=== PATIENT | male | born 1955 | race Caucasian/White ===

== ENCOUNTER 2019-01-28 10:57 | Observation (INO) | payer BC, SELFPAY ==
[2019-01-28] VITALS (7 sets, daily range): BP systolic 105–145; BP diastolic 62–84; PULSE 72–91; RESP 14–18; TEMP 36.7–36.8; O2SAT 91–99; BMI 26.7; BMI 26.8; BMI 26.6
--- NOTE | 2019-01-28 11:20 | RAD_ITS ---
STUDY: X-RAY CHEST REASON FOR EXAM: Male, 64 years old. Body pain. Weakness. TECHNIQUE: Single AP portable view of the chest. COMPARISON: None. FINDINGS: Mild cardiomegaly. Pulmonary vascularity unremarkable. Aorta ectatic. Bibasilar atelectasis/scarring. No focal patchy airspace opacities. No pleural effusions. Suspected COPD/emphysema. Upper abdomen unremarkable. Osseous structures intact. No pneumothorax. 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
--- NOTE | 2019-01-28 11:21 | EKG12_ITS ---
Test Reason : DYSRHYTHMIA Blood Pressure : / mmHG Vent. Rate : 087 BPM Atrial Rate : 087 BPM P-R Int : 168 ms QRS Dur : 110 ms QT Int : 406 ms P-R-T Axes : 015 -70 030 degrees QTc Int : 488 ms Sinus rhythm with occasional Premature ventricular complexes and Premature atrial complexes Incomplete right bundle branch block Left anterior fascicular block Inferior infarct , age undetermined Abnormal ECG Confirmed by ALEKSANDR PRINGLE, RANDA ([id number]), newspaper editor CASSANDRA GREEN ([id number]) on 02/02/2019 10:46:52 AM Referred By: AXEL Confirmed By:RANDA BRANDON MD
[2019-01-28 11:35] LABS: Absolute Lymphocyte Count 1.38 X10^3/ul (0.83-4.51); Absolute Neutrophil Count 5.9 X10^3/uL (2.0-7.7); Basophil# 0.02 X10^3/uL; Basophil% 0.2 % (0-1); Eosinophil# 0.17 X10^3/uL; Hematocrit 44.1 % (40-54); Lymphocyte # 1.38 X10^3/ul (4.0); Lymphocyte % 16.4 % (19-41); Mean Corpuscular Hgb 30.5 pg (27.0-32.0); Mean Corpuscular Volume 89.6 fL (80-94); Monocyte# 0.94 X10^3/uL; Monocyte% 11.2 % (0-10); Neutrophil # 5.88 X10^3/uL (2.7-7.7); Platelet Count 383 K/mm3 (150-450); RBC Distribution Width SD 45.8 fl (35.1-43.9); Red Blood Count 4.92 M/mm3 (4.6-6.2); White Blood Count 8.4 K/mm3 (4.4-11.0)
[2019-01-28 11:37] LABS: POSITIVE COUNT NO; POSITIVE DIFFERENTIAL NO; POSITIVE MORPHOLOGY NO
[2019-01-28] MEDS: 0.9% Normal Saline 1,000 ML 1000 ML IV (11:44)
[2019-01-28] MEDS: MethylPREDNISolone 125 MG/2 ML Vial IV (11:44)
[2019-01-28] MEDS: fentaNYL 100 MCG/2 ML Ampul IV (11:44)
[2019-01-28 11:57] LABS: Anion Gap 8 (5-15); BUN 14 mg/dL (7-18); BUN/Creat Ratio 13.7 RATIO (10-20); Calcium,Total 9.6 mg/dL (8.5-10.1); Chloride 93 mmol/L (98-107); Creatinine, Serum 1.02 mg/dL (0.70-1.30); EST Glomerular Filtration Rate 79 mL/min (>60); Est Glom Filt Rate - Afr Amer 95 mL/min (>60); Estimated Creatinine Clearance 72.65 ml/min; Glucose 97 mg/dL (74-106); Potassium 2.7 mmol/L (3.5-5.1); Sodium Level 133 mmol/L (136-145)
--- NOTE | 2019-01-28 11:58 | ED.RN ---
LAB CALL WITH CRITICAL VALUE POTASSIUM 2.7. KODAK GLASER AND DR. HOLGUIN VERBALLY NOTIFIED BY THIS RN.
[2019-01-28 12:30] LABS: Bacteria 0 SEEN /hpf (None Seen); Mucous, Urine 0 SEEN /hpf (<or=2+)
[2019-01-28 12:37] LABS: Color, Urine Yellow (Yellow); Glucose, Dipstick Normal (Normal); Ketone-Dipstick 5 mg/dl (Negative); Leukocyte Esterase-Dipstick 25 /ul (Negative); Nitrite-Dipstick Negative (Negative); Occult Blood-Urine 150 /ul (Negative); Protein-Dipstick 30 mg/dl (Negative); Urine Clarity Sl. Cloudy (Clear); Urine Urobilinogen 1 mg/dl (Normal)
[2019-01-28 12:56] LABS: Urine Bilirubin Dipstick 1 mg/dL (Negative)
[2019-01-28 12:58] LABS: Red Blood Cells-Urine 0-5 SEEN /hpf (0-5); Squamous Epithelial Cells - UA 0-5 SEEN /hpf (0-5); White Blood Cells 0-5 SEEN /hpf (0-5)
[2019-01-28] MEDS: fentaNYL 100 MCG/2 ML Ampul 50 MCG IV (14:03)
--- NOTE | 2019-01-28 14:20 | PCM.HP.STD ---
Problem List (1) Acute back pain Status: Acute Qualifiers: Back pain location: back pain in unspecified location Back pain laterality: unspecified Qualified Code(s): M54.9 - Dorsalgia, unspecified (2) Chronic back pain Status: Chronic Qualifiers: Back pain location: back pain in other location Qualified Code(s): M54.9 - Dorsalgia, unspecified; G89.29 - Other chronic pain (3) HTN (hypertension) Status: Chronic Qualifiers: Hypertension type: essential hypertension Qualified Code(s): I10 - Essential (primary) hypertension (4) HLD (hyperlipidemia) Status: Chronic Qualifiers: Hyperlipidemia type: pure hypercholesterolemia Qualified Code(s): E78.00 - Pure hypercholesterolemia, unspecified; E78.0 - Pure hypercholesterolemia (5) GERD (gastroesophageal reflux disease) Status: Chronic Qualifiers: Esophagitis presence: esophagitis presence not specified Qualified Code(s): K21.9 - Gastro-esophageal reflux disease without esophagitis (6) Tobacco use Status: Chronic (7) Allergic rhinitis Status: Chronic Qualifiers: Allergic rhinitis trigger: unspecified Allergic rhinitis seasonality: unspecified Qualified Code(s): J30.9 - Allergic rhinitis, unspecified (8) Hypokalemia Status: Acute (9) Hyponatremia Status: Acute History of Present Illness Date of Admission: 01/28/19 Chief Complaint: Weakness, worsening, recent d/c prednisone. The patient is a 64 y/o M w/ PMHx: Tobacco use, HTN, HLD, GERD, Allergic Rhinitis, BPH, Chronic Pain Syndrome w/ Chronic Back Pain on chronic methadone/oxycodone following w/ Pain Management who presents to the [facility] ED on 01/28/19 with history of recently running out of his 10 mg p.o. twice daily prednisone regimen which is been on for the last 10 years proximally 1 week prior with no refill obtained and since then over the last 3 days progressively worsening diffuse pain to the back, weakness which is generalized with poor oral intake and decreased urine output as a result secondary to debility prompting evaluation per his primary care office [facility] who recommended evaluation in the emergency room. Patient is in [place] however he notes that he does not like the [facility] prompting him to be evaluated at the [facility] ED. Work-up in the ED included T 98.2, heart rate 91, BP 131/83, respiratory rate 16, 95% on room air, CBC with W BC 8.4, hemoglobin 15, platelet 383 without left shift, BMP with sodium 133, potassium 2.7, chloride 93, troponin less than 0.015, urinalysis with elevated specific gravity 1.020 otherwise no market evidence of UTI only suggestive of dehydration, chest x-ray with chronic COPD, emphysematous changes with bibasilar atelectasis and scarring with mild cardiomegaly with no acute cardiopulmonary findings. In the ED patient ministered normal saline, Solu-Medrol 125 mg IV x1, fentanyl for total of 150 mcg IV. Past Medical History Past Medical History (Chronic Problems): Chronic Problems Chronic back pain (Chronic) HTN (hypertension) (Chronic) HLD (hyperlipidemia) (Chronic) GERD (gastroesophageal reflux disease) (Chronic) Tobacco use (Chronic) Allergic rhinitis (Chronic) Allergies aspirin Allergy (Verified 01/28/19 11:01) Unknown Penicillins Allergy (Verified 01/28/19 11:01) Unknown Home Medications: Ambulatory Orders Medication Instructions Recorded Amlodipine Besylate 10 mg PO DAILY 01/28/19 Atorvastatin Calcium [Lipitor] 20 mg PO DAILY 01/28/19 Hydrochlorothiazide [Hctz] 25 mg PO DAILY 01/28/19 Methadone HCl 5 mg PO BID 01/28/19 Oxycodone HCl 10 mg PO 4X/DAY 01/28/19 Prednisone 10 mg PO BID 01/28/19 Tamsulosin HCl 0.4 mg PO DAILY 01/28/19 Tizanidine HCl 2 mg PO TID PRN PRN 01/28/19 Surgical History: - - Laminectomy decompression of the cervical spine with fusion, umbilical hernia repair, pyloromyotomy, turbinoplasty x 2. Psychiatric History: No pertinent psych hx Lives: Spouse/ Significant Other Smoking Status: Current every day smoker - Currently 1 pack/day cigarette tobacco use. Tobacco Use: Cigarettes Alcohol: Occasional - Patient notes occasionally 1-2 beers at night but not every day. Drugs: None - *Family History Maternal History Items: - - Patient notes a maternal family history of heart disease and hypertension. Paternal History Items: - - Patient notes a paternal family history of heart disease as well as prostate cancer. Review of Systems Constitutional: Reports: Anorexia, Malaise, Weakness, Fatigue. Denies: Chills, Fever, Weight Change HEENT: Denies: Head Aches, Sinus Congestion, Sinus Drainage Cardiovascular: Denies: Chest Pain, Palpitations Respiratory: Denies: Cough, Shortness of breath at rest, Sputum production Gastrointestinal: Denies: Abdominal Pain, Nausea, Vomiting Genitourinary: Reports: - - Decreased UOP corresponding w/ decreased intake.. Denies: Dysuria Musculoskeletal: Reports: Back Pain, Joint Pain, Joint stiffness, Joint Tenderness, Muscle pain, Neck Pain, Shoulder Pain Skin: Denies: Rash, Wounds Neurological: Reports: - - Generalized weakness.. Denies: Focal weakness, Numbness, Tingling Psychiatric: Denies: Anxiety, Depression, Homicidal Ideations, Suicidal Ideations Hematologic/ Lymphatic: Denies: Easy Bruising, Easy Bleeding VTE Information - Inpt Only VTE Present on Admission: No VTE Mechan Device Prophylaxis: SCD's VTE Pharm Prophylaxis ordered?: Yes Patient Problems: Active and Suspected Problems Acute back pain (Acute) Hypokalemia (Acute) Hyponatremia (Acute) Subjective: Patient laying in the ED bed, fatigued appearance, notes ongoing discomfort although primarily worsened with any movement attempts. Objective: Physical Examination: General: awake, alert, oriented x 3 and cooperative, seated upright in the ED bed in no apparent distress, uncomfortable however with any movement attempts. Skin: normal color, turgor, no icterus, cyanosis. HEENT: AT/NC, EOMI, PERRLA, dry MM, no carotid bruits or JVD noted. Lungs: CTA bilaterally, moderate effort, moderate decrease BL bases, no rales, ronchi or wheezing. Heart: Regular rate and rhythm; no gallop, rub audible. Abdomen: soft, overweight, NTTP, ND, normal BS, no HSM. Extremities: no cyanosis, clubbing, or edema, appropriate intact peripheral pulses, lumbar and hip discomfort with straight leg raise bilaterally, discomfort with palpation of the complete spine as well as paraspinous regions. Neurological: patient awake, alert, oriented x 3; cognitive function intact; pupils equally reactive to light and accomodation; cranial nerves II-XII grossly normal, moving all 4 extremities however extremely debilitated secondary to acute on chronic back pain with strength severely globally decreased, no focal deficits. Psychiatric: affect appears fatigued, no acute evidence of depressive or anxiety feelings. - Physical Exam Vital Signs Temp Pulse Resp BP Pulse Ox 98.2 F 79 14 145/84 H 93 01/28/19 10:57 01/28/19 14:07 01/28/19 14:07 01/28/19 14:07 01/28/19 14:07 Oxygen Delivery Method Room Air Weight: 176 lb Body Mass Index (BMI) 26.7 Laboratory Tests Past 24 Hrs 01/28/19 01/28/19 01/28/19 11:23 11:23 12:18 WBC 8.4 RBC 4.92 Hgb 15.0 Hct 44.1 MCV 89.6 MCH 30.5 MCHC 34.0 RDW 14.0 RDW Differential 45.8 H Plt Count 383 MPV 9.0 Immature Gran % (Auto) 0.200 Neut % (Auto) 70.0 Lymph % (Auto) 16.4 L [place] % (Auto) 11.2 H Eos % (Auto) 2.0 Baso % (Auto) 0.2 Absolute Neuts (auto) 5.9 Absolute Lymphs (auto) 1.38 Total Counted Not Reportable Sodium 133 L Potassium 2.7 L* Chloride 93 L Carbon Dioxide 32.0 Anion Gap 8 BUN 14 Creatinine 1.02 Estim Creat Clear Calc 72.65 Est GFR (MDRD) Af Amer 95 Est GFR (MDRD) Non-Af 79 BUN/Creatinine Ratio 13.7 Glucose 97 Calcium 9.6 Troponin I < 0.015 Urine Color Yellow Urine Clarity Sl. Cloudy Urine pH 5.0 Ur Specific [place] 1.020 Urine Protein 30 H Urine Glucose (UA) Normal Urine Ketones 5 H Urine Occult Blood 150 H Urine Nitrite Negative Urine Bilirubin 1 H Urine Urobilinogen 1 H Ur Leukocyte Esterase 25 H Urine RBC 0-5 SEEN Urine WBC 0-5 SEEN Ur Squamous Epith Cells 0-5 SEEN Urine Bacteria 0 SEEN Urine Mucus 0 SEEN Assessment/Plan All Active Problems Acute back pain (Acute) Hypokalemia (Acute) Hyponatremia (Acute) The patient is a 64 y/o M w/ PMHx: Tobacco use, HTN, HLD, GERD, Allergic Rhinitis, BPH, Chronic Pain Syndrome w/ Chronic Back Pain on chronic methadone/oxycodone following w/ Pain Management who presents to the [facility] ED on 01/28/19 with history of recently running out of his 10 mg p.o. twice daily prednisone regimen which is been on for the last 10 years proximally 1 week prior with no refill obtained and since then over the last 3 days progressively worsening diffuse pain to the back, weakness which is generalized with poor oral intake and decreased urine output as a result secondary to debility prompting evaluation per his primary care office [facility] who recommended evaluation in the emergency room. (1) Acute on Chronic Intractable Back Pain: Plain films requested, no performed in the ED although suspect associated w/ recent discontinuation prednisone regimen which had been long-term without taper. Will admit to [facility], maintain on fall precautions, frequent positioning, po/IV pain regimen, continue scheduled steroid regimen, tizanidine PRN, scheduled toradol 30 mg IV q 8 x 5 doses, anti-emetics, bowel regimen. Will consult PT and OT for evaluation. If not improving may need to consider more aggressive imaging. Will continue patient home methadone regimen. (2) Hypokalemia: Admission K+ 2.7, supplementation given, repeat level this evening and in AM. Magnesium pending. (3) Hyponatremia, Hypochloremia, Hypovolemic: Admission Na 133, secondary to recent decreased intake, Chl 93, continue to hydrate, hold diuretic, repeat BMP in AM. (4) Hypertension: Holding diuretic, will continue home norvasc, PRN hydralazine. (5) Hyperlipidemia: Continue home statin regimen. (6) GERD: Famotidine. (7) DVT Prophylaxis: SCDs, lovenox. Code Visit OBSV E&M: 41202 Initial observation care L3
--- NOTE | 2019-01-28 14:29 | ED.VISSUMM ---
- ER Visit Summary Date of Service: 01/28/19 Chief Complaint: Weakness History of Present Illness: The patient is a 64 M with generalized weakness for 3 days. Patient reports back pain involving his entire spine. Symptoms started about 3-4 days after he stopped taking prednisone. Patient had been on prednisone for about 10 years. He was most recently on 10 mg daily. He ran out of prednisone, and because he was planning to stop it, he did not refill his prescription. He did not have a taper. He denies any bowel or bladder changes, except he has had decreased urine output. He has also had decreased p.o. intake. He reports some shortness of breath and generalized weakness. History of COPD, hypertension, hyperlipidemia, BPH, CKD, anemia, et al. History of a cervical laminectomy remotely but no other spinal procedures. Physical Examination: Afebrile and vital signs unremarkable. Patient appears uncomfortable but not toxic or in distress. Alert and oriented. Heart regular rate and rhythm. Lungs clear. Abdomen soft. Diffuse mild tenderness to his entire spine. Good strength and sensation, however on ambulation, he is only able to transfer. Test Results: EKG showed sinus rhythm at a rate of 87 with PVCs and PAC. Incomplete right bundle branch block noted with left anterior fascicular block noted. No acute ischemia or infarction pattern. CBC unremarkable. Sodium 133, potassium 2.7 and chloride 93. Urinalysis unremarkable. Troponin normal. Chest x-ray showed chronic changes and borderline cardiomegaly. Nothing acute. Emergency Department Course and Treatment: Patient was treated with fluids, fentanyl, and Solu-Medrol. After treatment, he was having continued pain. He received additional fentanyl. Patient's workup was fairly reassuring. He did have oral potassium replacement. There was no indication to image his spine. No trauma. No focal tenderness. Suspect the patient's symptoms are related to stopping prednisone. Again, he was treated with Solu-Medrol. He continued to have a lot of pain and was unable to ambulate. The hospitalist was contacted for further care. Treatment Plan: As above Disposition: Admission Impression: 1. Generalized weakness 2. Hypokalemia This note was generated with [employer] dictation software. It may contain incorrect words, spelling, and punctuation that were not noted in review of the chart prior to signing ED Disposition - Plan for ED Patient: Referrals: [facility] Doctor,Out of [Primary Care Provider] -
--- NOTE | 2019-01-28 14:31 | HP.PCM_ITS ---
Problem List (1) Acute back pain Status: Acute Qualifiers: Back pain location: back pain in unspecified location Back pain laterality: unspecified Qualified Code(s): M54.9 - Dorsalgia, unspecified (2) Chronic back pain Status: Chronic Qualifiers: Back pain location: back pain in other location Qualified Code(s): M54.9 - Dorsalgia, unspecified; G89.29 - Other chronic pain (3) HTN (hypertension) Status: Chronic Qualifiers: Hypertension type: essential hypertension Qualified Code(s): I10 - Essential (primary) hypertension (4) HLD (hyperlipidemia) Status: Chronic Qualifiers: Hyperlipidemia type: pure hypercholesterolemia Qualified Code(s): E78.00 - Pure hypercholesterolemia, unspecified; E78.0 - Pure hypercholesterolemia (5) GERD (gastroesophageal reflux disease) Status: Chronic Qualifiers: Esophagitis presence: esophagitis presence not specified Qualified Code(s): K21.9 - Gastro-esophageal reflux disease without esophagitis (6) Tobacco use Status: Chronic (7) Allergic rhinitis Status: Chronic Qualifiers: Allergic rhinitis trigger: unspecified Allergic rhinitis seasonality: unspecified Qualified Code(s): J30.9 - Allergic rhinitis, unspecified (8) Hypokalemia Status: Acute (9) Hyponatremia Status: Acute History of Present Illness Date of Admission: 01/28/19 Chief Complaint: Weakness, worsening, recent d/c prednisone. The patient is a 64 y/o M w/ PMHx: Tobacco use, HTN, HLD, GERD, Allergic Rhinitis, BPH, Chronic Pain Syndrome w/ Chronic Back Pain on chronic methadone/oxycodone following w/ Pain Management who presents to the [facility] ED on 01/28/19 with history of recently running out of his 10 mg p.o. twice daily prednisone regimen which is been on for the last 10 years proximally 1 week prior with no refill obtained and since then over the last 3 days progressively worsening diffuse pain to the back, weakness which is generalized with poor oral intake and decreased urine output as a result secondary to debility prompting evaluation per his primary care office [facility] who recommended evaluation in the emergency room. Patient is in [place] however he notes that he does not like the [facility] prompting him to be evaluated at the [facility] ED. Work-up in the ED included T 98.2, heart rate 91, BP 131/83, respiratory rate 16, 95% on room air, CBC with W BC 8.4, hemoglobin 15, platelet 383 without left shift, BMP with sodium 133, potassium 2.7, chloride 93, troponin less than 0.015, urinalysis with elevated specific gravity 1.020 otherwise no market evidence of UTI only suggestive of dehydration, chest x-ray with chronic COPD, emphysematous changes with bibasilar atelectasis and scarring with mild cardiomegaly with no acute cardiopulmonary findings. In the ED patient ministered normal saline, Solu-Medrol 125 mg IV x1, fentanyl for total of 150 mcg IV. Past Medical History Past Medical History (Chronic Problems): Chronic Problems Chronic back pain (Chronic) HTN (hypertension) (Chronic) HLD (hyperlipidemia) (Chronic) GERD (gastroesophageal reflux disease) (Chronic) Tobacco use (Chronic) Allergic rhinitis (Chronic) Allergies aspirin Allergy (Verified 01/28/19 11:01) Unknown Penicillins Allergy (Verified 01/28/19 11:01) Unknown Home Medications: Ambulatory Orders Medication Instructions Recorded Amlodipine Besylate 10 mg PO DAILY 01/28/19 Atorvastatin Calcium [Lipitor] 20 mg PO DAILY 01/28/19 Hydrochlorothiazide [Hctz] 25 mg PO DAILY 01/28/19 Methadone HCl 5 mg PO BID 01/28/19 Oxycodone HCl 10 mg PO 4X/DAY 01/28/19 Prednisone 10 mg PO BID 01/28/19 Tamsulosin HCl 0.4 mg PO DAILY 01/28/19 Tizanidine HCl 2 mg PO TID PRN PRN 01/28/19 Surgical History: - - Laminectomy decompression of the cervical spine with fusion, umbilical hernia repair, pyloromyotomy, turbinoplasty x 2. Psychiatric History: No pertinent psych hx Lives: Spouse/ Significant Other Smoking Status: Current every day smoker - Currently 1 pack/day cigarette tobacc o use. Tobacco Use: Cigarettes Alcohol: Occasional - Patient notes occasionally 1-2 beers at night but not every day. Drugs: None - *Family History Maternal History Items: - - Patient notes a maternal family history of heart disease and hypertension. Paternal History Items: - - Patient notes a paternal family history of heart disease as well as prostate cancer. Review of Systems Constitutional: Reports: Anorexia, Malaise, Weakness, Fatigue. Denies: Chills, Fever, Weight Change HEENT: Denies: Head Aches, Sinus Congestion, Sinus Drainage Cardiovascular: Denies: Chest Pain, Palpitations Respiratory: Denies: Cough, Shortness of breath at rest, Sputum production Gastrointestinal: Denies: Abdominal Pain, Nausea, Vomiting Genitourinary: Reports: - - Decreased UOP corresponding w/ decreased intake.. Denies: Dysuria Musculoskeletal: Reports: Back Pain, Joint Pain, Joint stiffness, Joint Tenderness, Muscle pain, Neck Pain, Shoulder Pain Skin: Denies: Rash, Wounds Neurological: Reports: - - Generalized weakness.. Denies: Focal weakness, Numbness, Tingling Psychiatric: Denies: Anxiety, Depression, Homicidal Ideations, Suicidal Ideations Hematologic/ Lymphatic: Denies: Easy Bruising, Easy Bleeding VTE Information - Inpt Only VTE Present on Admission: No VTE Mechan Device Prophylaxis: SCD's VTE Pharm Prophylaxis ordered?: Yes Patient Problems: Active and Suspected Problems Acute back pain (Acute) Hypokalemia (Acute) Hyponatremia (Acute) Subjective: Patient laying in the ED bed, fatigued appearance, notes ongoing discomfort although primarily worsened with any movement attempts. Objective: Physical Examination: General: awake, alert, oriented x 3 and cooperative, seated upright in the ED bed in no apparent distress, uncomfortable however with any movement attempts. Skin: normal color, turgor, no icterus, cyanosis. HEENT: AT/NC, EOMI, PERRLA, dry MM, no carotid bruits or JVD noted. Lungs: CTA bilaterally, moderate effort, moderate decrease BL bases, no rales, ronchi or wheezing. Heart: Regular rate and rhythm; no gallop, rub audible. Abdomen: soft, overweight, NTTP, ND, normal BS, no HSM. Extremities: no cyanosis, clubbing, or edema, appropriate intact peripheral pulses, lumbar and hip discomfort with straight leg raise bilaterally, discomfort with palpation of the complete spine as well as paraspinous regions. Neurological: patient awake, alert, oriented x 3; cognitive function intact; pupils equally reactive to light and accomodation; cranial nerves II-XII grossly normal, moving all 4 extremities however extremely debilitated secondary to acute on chronic back pain with strength severely globally decreased, no focal deficits. Psychiatric: affect appears fatigued, no acute evidence of depressive or anxiety feelings. - Physical Exam Vital Signs Temp Pulse Resp BP Pulse Ox 98.2 F 79 14 145/84 H 93 01/28/19 10:57 01/28/19 14:07 01/28/19 14:07 01/28/19 14:07 01/28/19 14:07 Oxygen Delivery Method Room Air Weight: 176 lb Body Mass Index (BMI) 26.7 Laboratory Tests Past 24 Hrs 01/28/19 01/28/19 01/28/19 11:23 11:23 12:18 WBC 8.4 RBC 4.92 Hgb 15.0 Hct 44.1 MCV 89.6 MCH 30.5 MCHC 34.0 RDW 14.0 RDW Differential 45.8 H Plt Count 383 MPV 9.0 Immature Gran % (Auto) 0.200 Neut % (Auto) 70.0 Lymph % (Auto) 16.4 L [place] % (Auto) 11.2 H Eos % (Auto) 2.0 Baso % (Auto) 0.2 Absolute Neuts (auto) 5.9 Absolute Lymphs (auto) 1.38 Total Counted Not Reportable Sodium 133 L Potassium 2.7 L* Chloride 93 L Carbon Dioxide 32.0 Anion Gap 8 BUN 14 Creatinine 1.02 Estim Creat Clear Calc 72.65 Est GFR (MDRD) Af Amer 95 Est GFR (MDRD) Non-Af 79 BUN/Creatinine Ratio 13.7 Glucose 97 Calcium 9.6 Troponin I < 0.015 Urine Color Yellow Urine Clarity Sl. Cloudy Urine pH 5.0 Ur Specific [place] 1.020 Urine Protein 30 H Urine Glucose (UA) Normal Urine Ketones 5 H Urine Occult Blood 150 H Urine Nitrite Negative Urine Bilirubin 1 H Urine Urobilinogen 1 H Ur Leukocyte Esterase 25 H Urine RBC 0-5 SEEN Urine WBC 0-5 SEEN Ur Squamous Epith Cells 0-5 SEEN Urine Bacteria 0 SEEN Urine Mucus 0 SEEN Assessment/Plan All Active Problems Acute back pain (Acute) Hypokalemia (Acute) Hyponatremia (Acute) The patient is a 64 y/o M w/ PMHx: Tobacco use, HTN, HLD, GERD, Allergic Rhinitis, BPH, Chronic Pain Syndrome w/ Chronic Back Pain on chronic methadone/oxycodone following w/ Pain Management who presents to the [facility] ED on 01/28/19 with history of recently running out of his 10 mg p.o. twice daily prednisone regimen which is been on for the last 10 years proximally 1 week prior with no refill obtained and since then over the last 3 days progressively worsening diffuse pain to the back, weakness which is generalized with poor oral intake and decreased urine output as a result secondary to debility prompting evaluation per his primary care office [facility] TECHNIC[facility] who recommended evaluation in the emergency room. (1) Acute on Chronic Intractable Back Pain: Plain films requested, no performed in the ED although suspect associated w/ recent discontinuation prednisone regimen which had been long-term without taper. Will admit to [facility], maintain on fall precautions, frequent positioning, po/IV pain regimen, continue scheduled steroid regimen, tizanidine PRN, scheduled toradol 30 mg IV q 8 x 5 doses, anti- emetics, bowel regimen. Will consult PT and OT for evaluation. If not improving may need to consider more aggressive imaging. Will continue patient home methadone regimen. (2) Hypokalemia: Admission K+ 2.7, supplementation given, repeat level this evening and in AM. Magnesium pending. (3) Hyponatremia, Hypochloremia, Hypovolemic: Admission Na 133, secondary to recent decreased intake, Chl 93, continue to hydrate, hold diuretic, repeat BMP in AM. (4) Hypertension: Holding diuretic, will continue home norvasc, PRN hydralazine. (5) Hyperlipidemia: Continue home statin regimen. (6) GERD: Famotidine. (7) DVT Prophylaxis: SCDs, lovenox. Code Visit OBSV E&M: 44713 Initial observation care L3
--- NOTE | 2019-01-28 14:33 | ED.DCSUM_ITS ---
- ER Visit Summary Date of Service: 01/28/19 Chief Complaint: Weakness History of Present Illness: The patient is a 64 M with generalized weakness for 3 days. Patient reports back pain involving his entire spine. Symptoms started about 3-4 days after he stopped taking prednisone. Patient had been on pred nisone for about 10 years. He was most recently on 10 mg daily. He ran out of prednisone, and because he was planning to stop it, he did not refill his prescription. He did not have a taper. He denies any bowel or bladder changes, except he has had decreased urine output. He has also had decreased p.o. intake. He reports some shortness of breath and generalized weakness. History of COPD, hypertension, hyperlipidemia, BPH, CKD, anemia, et al. History of a cervical laminectomy remotely but no other spinal procedures. Physical Examination: Afebrile and vital signs unremarkable. Patient appears uncomfortable but not toxic or in distress. Alert and oriented. Heart regular rate and rhythm. Lungs clear. Abdomen soft. Diffuse mild tenderness to his entire spine. Good strength and sensation, however on ambulation, he is only able to transfer. Test Results: EKG showed sinus rhythm at a rate of 87 with PVCs and PAC. Incomplete right bundle branch block noted with left anterior fascicular block noted. No acute ischemia or infarction pattern. CBC unremarkable. Sodium 133, potassium 2.7 and chloride 93. Urinalysis unremarkable. Troponin normal. Chest x-ray showed chronic changes and borderline cardiomegaly. Nothing acute. Emergency Department Course and Treatment: Patient was treated with fluids, fentanyl, and Solu-Medrol. After treatment, he was having continued pain. He received additional fentanyl. Patient's workup was fairly reassuring. He did have oral potassium replacem ent. There was no indication to image his spine. No trauma. No focal tenderness. Suspect the patient's symptoms are related to stopping prednisone. Again, he was treated with Solu-Medrol. He continued to have a lot of pain and was unable to ambulate. The hospitalist was contacted for further care. Treatment Plan: As above Disposition: Admission Impression: 1. Generalized weakness 2. Hypokalemia This note was generated with [employer]-fiation software. It may contain incorrect words, spelling, and punctuation that were not noted in review of the chart prior to signing ED Disposition - Plan for ED Patient: Referrals: [facility] Doctor,Out of [Primary Care Provider] -
--- NOTE | 2019-01-28 14:34 | NURSING ---
MED SURG WHITE OBS GEN WEAKNESS, HYPOKALEMIA
--- NOTE | 2019-01-28 14:46 | CASEMGMT ---
RN CM Assessment Introduced role of RN CM to patient and patient Jose Quiñones.? Patient is alert, oriented and able?to participate in RN CM Assessment. ?Care providers, pharmacy, and demographics verified. Presentation: Weakness, Onset Saturday01/26/19, Stopped Prednisone x3 days ago-has been on Prednisone x10yrs Admit Dx: Acute intractable Back Pain Re-Admit: No Barriers/Issues: None PCP: Barbara Costa Specialists: None Preferred [facility]acy: [facility] Insurance: [employer] Benefit: Yes? LNOK: Significant Other Maddie Quiñones LW/HPOA: No, Would like Information Living Arrangements:? Lives with Significant Other in a 2 story home, 3 steps to enter ADL?s: Independent with ambulation and ADL's Transportation: Patient drives, Sig. Other to transport upon DC DME: None HHC: None SNF: None Goal: Home, patient agreeable if HH PT needed upon DC. DC PLAN: Home with possible HH PT. Anthony Dunbar RNCM
--- NOTE | 2019-01-28 15:22 | RAD_ITS ---
STUDY: X-RAY - LUMBAR SPINE REASON FOR EXAM: Male, 64 years old. Neck pain TECHNIQUE: 3 view(s) of the lumbar spine were obtained. COMPARISON: None FINDINGS: Normal lumbar lordosis. There is no substantial scoliosis. There is a normal alignment of the vertebrae. There is generalized demineralization of the vertebral bodies. There is minimal depression of the sclerosed superior endplate L1 and T12. There is multi-level degenerative disc disease with multi-level disc space narrowing most pronounced L5-S1. There is atherosclerotic calcification of the abdominal aorta without a demonstrated aneurysm. RAD/Lumbar Spine 2 or 3 Views IMPRESSION: Degenerative changes of the spine, as detailed above. Minimal depression along the superior endplate T12 and L1 which are sclerosed. Comparison with older examinations may be helpful for dating. This may be chronic in age. Electronically Signed: Hallie Sam MD at 3:51 EDT , Service support ,
--- NOTE | 2019-01-28 15:22 | RAD_ITS ---
STUDY: X-RAY - THORACIC SPINE REASON FOR EXAM: Male, 64 years old. Back pain TECHNIQUE: AP and lateral view(s) of the thoracic spine were obtained. COMPARISON: None. FINDINGS: There are multilevel thoracic osteophytes. There is fixation alona with interpedicular screws within the lower cervical spine. The soft tissue structures are unremarkable. There is left lower lobe linear pulmonary scarring. RAD/Thoracic Spine 3 Views IMPRESSION: Multilevel spondylosis, no acute fractures Fixation rods and interpedicular screws within the lower cervical spine Left lower lobe linear scarring Electronically Signed: Jerry Humphreys, at 16:43 EDT Tel , Service support ,
--- NOTE | 2019-01-28 15:22 | RAD_ITS ---
STUDY: X-RAY - CERVICAL SPINE REASON FOR EXAM: Male, 64 years old. Neck pain TECHNIQUE: 3 view(s) of the cervical spine were obtained. COMPARISON: MRI cervical spine 03/27/2017 FINDINGS: There are mild degenerative changes at C1-C2. Normal odontoid process. There is a left cervical soft tissue focal calcification. There is prior posterior cervical spinal fusion from C3 through C5 with interpedicular screws and fixation rods. There is 3 mm posterior listhesis C5 on C4. There are no fractures.. There are multilevel osteophytes. There are no acute fractures. . RAD/Cerv Spine 2 or 3 Views IMPRESSION: Multilevel spondylosis Left cervical soft tissue calcification which could represent calcified atherosclerotic plaque. This could be further evaluated with carotid ultrasound. Electronically Signed: Jerry Humphreys, at 16:08 EDT Tel , Service support ,
[2019-01-28 15:35] LABS: Magnesium 1.8 mg/dL (1.6-2.6)
[2019-01-28] MEDS: Ketorolac 30 MG/ML Syringe IV ×2 (16:41→21:22)
[2019-01-28] MEDS: oxyCODONE 5 MG Tablet 10 MG PO ×2 (16:42→21:23)
[2019-01-28] MEDS: Tamsulosin HCl 0.4 MG Capsule PO (16:46)
[2019-01-28] MEDS: 0.9% Normal Saline 1,000 ML 999 ML IV (17:10)
[2019-01-28] MEDS: 0.9% Normal Saline 1,000 ML 125 ML IV (18:18)
[2019-01-28] MEDS: HYDROmorphone 0.5 MG/0.5 ML SYRINGE IV (18:26)
[2019-01-28] MEDS: tiZANidine HCl 2 MG Tablet PO (19:53)
[2019-01-28 20:21] LABS: Anion Gap 8 (5-15); BUN 21 mg/dL (7-18); BUN/Creat Ratio 15.6 RATIO (10-20); Calcium,Total 8.5 mg/dL (8.5-10.1); Chloride 101 mmol/L (98-107); Creatinine, Serum 1.35 mg/dL (0.70-1.30); EST Glomerular Filtration Rate 57 mL/min (>60); Est Glom Filt Rate - Afr Amer 69 mL/min (>60); Estimated Creatinine Clearance 54.89 ml/min; Glucose 217 mg/dL (74-106); Potassium 3.5 mmol/L (3.5-5.1); Sodium Level 137 mmol/L (136-145)
[2019-01-28] MEDS: Atorvastatin Calcium 20 MG Tablet PO (21:22)
[2019-01-28] MEDS: Pantoprazole Sodium 20 MG Tablet PO (21:22)
[2019-01-29] VITALS (7 sets, daily range): BP systolic 112–140; BP diastolic 60–81; PULSE 74–84; RESP 14–18; TEMP 36.6–36.8; O2SAT 92–97
[2019-01-29] MEDS: HYDROmorphone 0.5 MG/0.5 ML SYRINGE IV ×4 (00:39→22:04)
[2019-01-29] MEDS: 0.9% Normal Saline 1,000 ML 125 ML IV ×2 (01:49→09:48)
[2019-01-29] MEDS: oxyCODONE 5 MG Tablet 10 MG PO ×4 (02:54→18:30)
[2019-01-29 05:58] LABS: Anion Gap 8 (5-15); BUN 28 mg/dL (7-18); BUN/Creat Ratio 31.3 RATIO (10-20); Calcium,Total 8.2 mg/dL (8.5-10.1); Chloride 104 mmol/L (98-107); EST Glomerular Filtration Rate 91 mL/min (>60); Est Glom Filt Rate - Afr Amer 111 mL/min (>60); Estimated Creatinine Clearance 82.33 ml/min; Glucose 176 mg/dL (74-106); Potassium 3.5 mmol/L (3.5-5.1); Sodium Level 138 mmol/L (136-145)
[2019-01-29] MEDS: 0.9% NaCl Peripheral Flush Adult/Peds IV ×6 (06:04→22:05)
[2019-01-29] MEDS: Ketorolac 30 MG/ML Syringe IV ×3 (06:04→21:51)
[2019-01-29 06:06] LABS: Absolute Lymphocyte Count 0.61 X10^3/ul (0.83-4.51); Absolute Neutrophil Count 9.7 X10^3/uL (2.0-7.7); Basophil# 0.01 X10^3/uL; Basophil% 0.1 % (0-1); Hematocrit 35.7 % (40-54); Hemoglobin 11.9 g/dl (13.0-16.5); Lymphocyte # 0.61 X10^3/ul (4.0); Lymphocyte % 5.6 % (19-41); Mean Corp Hgb Conc 33.3 g/gl (32-36); Mean Corpuscular Hgb 30.2 pg (27.0-32.0); Mean Corpuscular Volume 90.6 fL (80-94); Mean Platelet Vol. 9.3 fl (6.2-12.0); Monocyte# 0.55 X10^3/uL; Monocyte% 5.1 % (0-10); Neutrophil # 9.67 X10^3/uL (2.7-7.7); Neutrophil % 89.1 % (47-70); Platelet Count 375 K/mm3 (150-450); RBC Distribution Width CV 13.8 % (11.6-14.6); RBC Distribution Width SD 45.7 fl (35.1-43.9); Red Blood Count 3.94 M/mm3 (4.6-6.2); White Blood Count 10.9 K/mm3 (4.4-11.0)
[2019-01-29 06:07] LABS: POSITIVE COUNT NO; POSITIVE DIFFERENTIAL NO; POSITIVE MORPHOLOGY NO
[2019-01-29] MEDS: predniSONE 20 MG Tablet 40 MG PO (09:49)
[2019-01-29] MEDS: amLODIPine 10 MG Tablet PO (09:50)
[2019-01-29] MEDS: Enoxaparin 40 MG/0.4 ML Syringe SC (09:50)
[2019-01-29] MEDS: Pantoprazole Sodium 20 MG Tablet PO ×2 (09:50→21:51)
--- NOTE | 2019-01-29 11:54 | PCM.PROGNOTE ---
Patient Problems: Active and Suspected Problems Adrenal insufficiency due to steroid withdrawal (Acute) Subjective: Mr. Jimenes is a 64-year-old male with a past medical history of chronic back pain, hypertension, hyperlipidemia, GERD, tobacco dependence, allergic rhinitis, BPH and chronic pain syndrome on methadone and oxycodone who follows with pain management who presented to the Ed at [facility] on 01/28/2019 complaining of increased back pain. He ran out of prednisone (takes 10 mg BID) for the past 10 years and did not get a refill. He has had decreased appetite and poor intake with generalized weakness. Vital signs in the emergency department were temp 98.2, heart rate 91, blood pressure 131/83, respiratory rate 16 and he was 95% saturated on room air. White blood cell count was 8.4 with an unremarkable differential. Sodium was low at 133 and the potassium was 2.7. BUN was 14 and creatinine was 1.02. UA had 0-5 WBCs per high-power field. He was admitted to the hospital with a diagnosis of acute on chronic intractable back pain. He did not walk with physical therapy today because he refused and stated he was not too much pain but he was observed moving around the room and sitting at the edge of the bed. He has been observed walking to the bathroom. When anyone enters his room he immediately goes and sits on the edge of the bed and complains of intractable pain. He sees a pain management doctor in [place] although he lives in [place]. He is unaware that most pain management doctors have decided contracted state you are not to receive any narcotic prescriptions from other physicians and that you must use the same pharmacy. He says that he has run out of his prednisone however he received a prescription in mid November for 3 months worth of prednisone, 10 mg every morning and 5 mg every afternoon. This prescription should not have run out but he tells me that he has been taking 10 mg twice daily rather than the prescribed amount. 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 - Physical Exam General: Alert, Oriented x3, No apparent distress, Well developed, Well nourished, - - Smells strongly of cigarette smoke HEENT: Atraumatic, Normocephalic Oral: Moist Mucosa Neck: Trachea Midline, - - There is a cicatrix on the posterior neck on the left Lungs: Clear to auscultation, Diminished Cardiovascular: Regular rate, Regular Rhythm, Normal S1, Normal S2, No Gallop Abdomen: Bowel Sounds Present, Soft, Non Tender, Non-Distended Extremities: No clubbing, No cyanosis, No edema Skin: No rashes Neurological: Cranial nerves II-XII grossly intact, Neuro grossly intact, Motor Exam 5/5 strength throughout Psych/Mental Status: - - I have the feeling that he is malingering. Sees a pain management doc in [place], lives in [place] and came to [facility] for admission........when I told him that I could not write a RX for narcotics for him he did not seem to recall that he had signed a contract with pain management not to receive narcotics from other phsycians Vital Signs Temp Pulse Resp BP Pulse Ox 97.9 F 77 16 123/67 H 97 01/29/19 09:44 01/29/19 09:44 01/29/19 09:44 01/29/19 09:44 01/29/19 09:44 Oxygen Delivery Method Room Air Weight: 175 lb 1.6 oz Body Mass Index (BMI) 26.6 Intake and Output for Last 24 Hours 01/27/19 01/28/19 01/29/19 23:59 23:59 23:59 Intake Total 2831 / 2831 Output Total 200 / 200 Balance 2631 / 2631 Laboratory Tests Past 24 Hrs 01/28/19 01/28/19 01/28/19 11:23 11:23 12:18 WBC RBC Hgb Hct MCV MCH MCHC RDW RDW Differential Plt Count MPV Immature Gran % (Auto) Neut % (Auto) Lymph % (Auto) Power % (Auto) Eos % (Auto) Baso % (Auto) Absolute Neuts (auto) Absolute Lymphs (auto) Total Counted Sodium 133 L Potassium 2.7 L* Chloride 93 L Carbon Dioxide 32.0 Anion Gap 8 BUN 14 Creatinine 1.02 Estim Creat Clear Calc 72.65 Est GFR (MDRD) Af Amer 95 Est GFR (MDRD) Non-Af 79 BUN/Creatinine Ratio 13.7 Glucose 97 Calcium 9.6 Magnesium 1.8 Troponin I < 0.015 Urine Color Yellow Urine Clarity Sl. Cloudy Urine pH 5.0 Ur Specific [place] 1.020 Urine Protein 30 H Urine Glucose (UA) Normal Urine Ketones 5 H Urine Occult Blood 150 H Urine Nitrite Negative Urine Bilirubin 1 H Urine Urobilinogen 1 H Ur Leukocyte Esterase 25 H Urine RBC 0-5 SEEN Urine WBC 0-5 SEEN Ur Squamous Epith Cells 0-5 SEEN Urine Bacteria 0 SEEN Urine Mucus 0 SEEN 01/28/19 01/29/19 01/29/19 20:00 05:14 05:14 WBC 10.9 RBC 3.94 L Hgb 11.9 L Hct 35.7 L MCV 90.6 MCH 30.2 MCHC 33.3 RDW 13.8 RDW Differential 45.7 H Plt Count 375 MPV 9.3 Immature Gran % (Auto) 0.100 Neut % (Auto) 89.1 H Lymph % (Auto) 5.6 L Power % (Auto) 5.1 Eos % (Auto) 0.0 Baso % (Auto) 0.1 Absolute Neuts (auto) 9.7 H Absolute Lymphs (auto) 0.61 L Total Counted Not Reportable Sodium 137 138 Potassium 3.5 3.5 Chloride 101 104 Carbon Dioxide 28.0 26.0 Anion Gap 8 8 BUN 21 H 28 H Creatinine 1.35 H 0.90 Estim Creat Clear Calc 54.89 82.33 Est GFR (MDRD) Af Amer 69 111 Est GFR (MDRD) Non-Af 57 L 91 BUN/Creatinine Ratio 15.6 31.3 H Glucose 217 H 176 H Calcium 8.5 8.2 L Magnesium Troponin I Urine Color Urine Clarity Urine pH Ur Specific [place] Urine Protein Urine Glucose (UA) Urine Ketones Urine Occult Blood Urine Nitrite Urine Bilirubin Urine Urobilinogen Ur Leukocyte Esterase Urine RBC Urine WBC Ur Squamous Epith Cells Urine Bacteria Urine Mucus Medical Necessity - Tobacco Use Smoking Status: Current every day smoker Tobacco Use: Cigarettes Assessment/Plan All Active Problems Adrenal insufficiency due to steroid withdrawal (Acute) Hypokalemia (Acute) Hyponatremia (Acute) Impressions 1. acute adrenal insufficiency with Hyponatremia, hypokalemia, generalized weakness and myalgias/arthralgias 2. Acute on chronic back pain-due to adrenal insufficiency or malingering 3. Chronic pain syndrome-follows with a pain management doctor in [facility] and received his last prescriptions for narcotics and methadone on 01/13/2019 4. Hyponatremia 5. Hypokalemia 6. Hypertension 7. Hyperlipidemia 8. GERD 9. Tobacco dependence DC the prednisone and give 3 doses of solu-cortef 100 mg and then resume prednisone. No adjustments to current pain medications He agrees to work with PT this afternoon. Code Visit OBSV E&M: 71754 Subsequent observation care L3
--- NOTE | 2019-01-29 12:01 | PN_ITS ---
Patient Problems: Active and Suspected Problems Adrenal insufficiency due to steroid withdrawal (Acute) Subjective: Mr. Jimenes is a 64-year-old male with a past medical history of chronic back pain, hypertension, hyperlipidemia, GERD, tobacco dependence, allergic rhinitis, BPH and chronic pain syndrome on methadone and oxycodone who follows with pain management who presented to the Ed at [facility] on 01/28/2019 complaining of increased back pain. He ran out of prednisone (takes 10 mg BID) for the past 10 years and did not get a refill. He has had decreased appetite and poor intake with generalized weakness. Vital signs in the emergency department were temp 98.2, heart rate 91, blood pressure 131/83, respiratory rate 16 and he was 95% saturated on room air. White blood cell count was 8.4 with an unremarkable differential. Sodium was low at 133 and the potassium was 2.7. BUN was 14 and creatinine was 1.02. UA had 0-5 WBCs per high-power field. He was admitted to the hospital with a diagnosis of acute on chronic intractable back pain. He did not walk with physical therapy today because he refused and stated he was not too much pain but he was observed moving around the room and sitting at the edge of the bed. He has been observed walking to the bathroom. When anyone enters his room he immediately goes and sits on the edge of the bed and complains of intractable pain. He sees a pain management doctor in [place] although he lives in [place]. He is unaware that most pain management doctors have decided contracted state you are not to receive any narcotic prescriptions from other physicians and that you must use the same pharmacy. He says that he has run out of his prednisone however he received a prescription in mid November for 3 months worth of prednisone, 10 mg every morning and 5 mg every afternoon. This prescription should not have run out but he tells me that he has been taking 10 mg twice daily rather than the prescribed amount. 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 - Physical Exam General: Alert, Oriented x3, No apparent distress, Well developed, Well nourished, - - Smells strongly of cigarette smoke HEENT: Atraumatic, Normocephalic Oral: Moist Mucosa Neck: Trachea Midline, - - There is a cicatrix on the posterior neck on the left Lungs: Clear to auscultation, Diminished Cardiovascular: Regular rate, Regular Rhythm, Normal S1, Normal S2, No Gallop Abdomen: Bowel Sounds Present, Soft, Non Tender, Non-Distended Extremities: No clubbing, No cyanosis, No edema Skin: No rashes Neurological: Cranial nerves II-XII grossly intact, Neuro grossly intact, Motor Exam 5/5 strength throughout Psych/Mental Status: - - I have the feeling that he is malingering. Sees a pain management doc in [place], lives in [place] and came to [facility] for admission........when I told him that I could not write a RX for narcotics for him he did not seem to recall that he had signed a contract with pain management not to receive narcotics from other phsycians Vital Signs Temp Pulse Resp BP Pulse Ox 97.9 F 77 16 123/67 H 97 01/29/19 09:44 01/29/19 09:44 01/29/19 09:44 01/29/19 09:44 01/29/19 09:44 Oxygen Delivery Method Room Air Weight: 175 lb 1.6 oz Body Mass Index (BMI) 26.6 Intake and Output for Last 24 Hours 01/27/19 01/28/19 01/29/19 23:59 23:59 23:59 Intake Total 2831 / 2831 Output Total 200 / 200 Balance 2631 / 2631 Laboratory Tests Past 24 Hrs 01/28/19 01/28/19 01/28/19 11:23 11:23 12:18 WBC RBC Hgb Hct MCV MCH MCHC RDW RDW Differential Plt Count MPV Immature Gran % (Auto) Neut % (Auto) Lymph % (Auto) [place] % (Auto) Eos % (Auto) Baso % (Auto) Absolute Neuts (auto) Absolute Lymphs (auto) Total Counted Sodium 133 L Potassium 2.7 L* Chloride 93 L Carbon Dioxide 32.0 Anion Gap 8 BUN 14 Creatinine 1.02 Estim Creat Clear Calc 72.65 Est GFR (MDRD) Af Amer 95 Est GFR (MDRD) Non-Af 79 BUN/Creatinine Ratio 13.7 Glucose 97 Calcium 9.6 Magnesium 1.8 Troponin I < 0.015 Urine Color Yellow Urine Clarity Sl. Cloudy Urine pH 5.0 Ur Specific [place] 1.020 Urine Protein 30 H Urine Glucose (UA) Normal Urine Ketones 5 H Urine Occult Blood 150 H Urine Nitrite Negative Urine Bilirubin 1 H Urine Urobilinogen 1 H Ur Leukocyte Esterase 25 H Urine RBC 0-5 SEEN Urine WBC 0-5 SEEN Ur Squamous Epith Cells 0-5 SEEN Urine Bacteria 0 SEEN Urine Mucus 0 SEEN 01/28/19 01/29/19 01/29/19 20:00 05:14 05:14 WBC 10.9 RBC 3.94 L Hgb 11.9 L Hct 35.7 L MCV 90.6 MCH 30.2 MCHC 33.3 RDW 13.8 RDW Differential 45.7 H Plt Count 375 MPV 9.3 Immature Gran % (Auto) 0.100 Neut % (Auto) 89.1 H Lymph % (Auto) 5.6 L [place] % (Auto) 5.1 Eos % (Auto) 0.0 Baso % (Auto) 0.1 Absolute Neuts (auto) 9.7 H Absolute Lymphs (auto) 0.61 L Total Counted Not Reportable Sodium 137 138 Potassium 3.5 3.5 Chloride 101 104 Carbon Dioxide 28.0 26.0 Anion Gap 8 8 BUN 21 H 28 H Creatinine 1.35 H 0.90 Estim Creat Clear Calc 54.89 82.33 Est GFR (MDRD) Af Amer 69 111 Est GFR (MDRD) Non-Af 57 L 91 BUN/Creatinine Ratio 15.6 31.3 H Glucose 217 H 176 H Calcium 8.5 8.2 L Magnesium Troponin I Urine Color Urine Clarity Urine pH Ur Specific [place] Urine Protein Urine Glucose (UA) Urine Ketones Urine Occult Blood Urine Nitrite Urine Bilirubin Urine Urobilinogen Ur Leukocyte Esterase Urine RBC Urine WBC Ur Squamous Epith Cells Urine Bacteria Urine Mucus Medical Necessity - Tobacco Use Smoking Status: Current every day smoker Tobacco Use: Cigarettes Assessment/Plan All Active Problems Adrenal insufficiency due to steroid withdrawal (Acute) Hypokalemia (Acute) Hyponatremia (Acute) Impressions 1. acute adrenal insufficiency with Hyponatremia, hypokalemia, generalized weakness and myalgias/arthralgias 2. Acute on chronic back pain-due to adrenal insufficiency or malingering 3. Chronic pain syndrome-follows with a pain management doctor in [facility] and received his last prescriptions for narcotics and methadone on 01/13/2019 4. Hyponatremia 5. Hypokalemia 6. Hypertension 7. Hyperlipidemia 8. GERD 9. Tobacco dependence DC the prednisone and give 3 doses of solu-cortef 100 mg and then resume prednisone. No adjustments to current pain medications He agrees to work with PT this afternoon. Code Visit OBSV E&M: 12703 Subsequent observation care L3
[2019-01-29] MEDS: Hydrocortisone Sod Succinate 100 MG/2 ML Vial IV ×2 (13:45→21:51)
--- NOTE | 2019-01-29 14:34 | CHAPLAIN ---
Type of Pastoral Visit _x__ Initial Visit ___ Follow-up Visit ___ On-call Visit ___ General Patient Visit ___ Spiritual Assessment ___ Family Conference ___ Bereavement ___ Rapid Response ___ Code Blue ___ Other (describe below) Pastoral Care Referral From _x__ Patient ___ Family ___ Nurse ___ Physician ___ Clicker Operator ___ Security Flex Utility Officer ___ Other (describe below) Sacrament/Intervention _x__ Active listening ___ Anointing ___ Buddhism ___ Bereavement ___ Communion ___ Mandie exploration ___ _x__ Life review _x__ Prayer ___ Reconciliation ___ Sacrament of Sick _x__ Supportive presence ___ Wedding ___ Other (describe below) Pastoral Comments
[2019-01-29] MEDS: Tamsulosin HCl 0.4 MG Capsule PO (17:03)
[2019-01-29] MEDS: 0.9% Normal Saline 1,000 ML 80 ML IV (18:32)
[2019-01-29] MEDS: tiZANidine HCl 2 MG Tablet PO (20:31)
[2019-01-29] MEDS: Atorvastatin Calcium 20 MG Tablet PO (21:51)
[2019-01-29] MEDS: MELATONIN 3 MG TABLET PO (21:51)
[2019-01-30] MEDS: oxyCODONE 5 MG Tablet 10 MG PO ×4 (00:35→13:08)
[2019-01-30] MEDS: 0.9% NaCl Peripheral Flush Adult/Peds IV ×4 (00:36→13:11)
[2019-01-30 02:25] VITALS: BP 149/60; PULSE 66; RESP 16; TEMP 36.3; O2SAT 93
[2019-01-30] MEDS: Hydrocortisone Sod Succinate 100 MG/2 ML Vial IV ×2 (05:05→13:09)
[2019-01-30 08:25] VITALS: BP 139/78; PULSE 76; RESP 16; TEMP 37.1; O2SAT 96
[2019-01-30] MEDS: Pantoprazole Sodium 20 MG Tablet PO (08:38)
[2019-01-30] MEDS: Enoxaparin 40 MG/0.4 ML Syringe SC (08:38)
[2019-01-30] MEDS: amLODIPine 10 MG Tablet PO (08:38)
[2019-01-30] MEDS: tiZANidine HCl 2 MG Tablet PO (08:42)
[2019-01-30] MEDS: HYDROmorphone 0.5 MG/0.5 ML SYRINGE IV (11:19)
[2019-01-30 13:25] VITALS: BP 153/75; PULSE 87; RESP 16; TEMP 36.9; O2SAT 98
--- NOTE | 2019-01-30 13:42 | DCINST_ITS ---
- Discharge Diagnoses Current Active Problems: Current Active and Chronic Problems Chronic back pain (Chronic) HTN (hypertension) (Chronic) HLD (hyperlipidemia) (Chronic) GERD (gastroesophageal reflux disease) (Chronic) Tobacco use (Chronic) Allergic rhinitis (Chronic) Acute back pain (Acute) Hypokalemia (Acute) Hyponatremia (Acute) You will use the following diet at home:: Calorie/Carbohydrate Controlled (specify 1200, 1400, etc) - Low salt and low cholesterol Return to work on:: 02/09/19 Call your doctor if you observe: Fever of 101 or Higher, Shortness of breath, Swelling in the ankles, Chest pain Allergies/Adverse Reactions: Allergies aspirin Allergy (Verified 01/28/19 11:01) Unknown Penicillins Allergy (Verified 01/28/19 11:01) Unknown Medications to take at Discharge Amlodipine Besylate 10 mg PO DAILY 01/28/19 Atorvastatin Calcium [Lipitor] 20 mg PO DAILY 01/28/19 Hydrochlorothiazide [Hctz] 25 mg PO DAILY 01/28/19 Methadone HCl 5 mg PO BID 01/28/19 Oxycodone HCl 10 mg PO 4X/DAY 01/28/19 Tamsulosin HCl 0.4 mg PO DAILY 01/28/19 Prednisone 10 mg PO BID #45 tablet 01/30/19 Tizanidine HCl 2 mg PO TID PRN PRN #30 tablet 01/30/19 The following prescriptions were given: Tizanidine HCl 2 mg PO TID PRN PRN #30 tablet PRN Reason: MUSCLE SPASMS Prednisone 10 mg PO BID #45 tablet Primary Care Physician: Chadd Castillo,Out of [Primary Care Provider] - Please follow up with your Primary Care Physician in: 1 week Test Results: Test results from this visit will be discussed in further detail at your follow- up appointment, if applicable. Please Follow Up With: pain management When: has an appt scheduled already Proposed Discharge Date: 01/30/19
--- NOTE | 2019-01-30 13:46 | PCM.DC.SUM ---
Discharge Date and Diagnosis - Problem List Patient Problems: Active and Suspected Problems Adrenal insufficiency due to steroid withdrawal (Acute) Date of Admission: 01/28/19 Date of Discharge: 01/30/19 - Primary Discharge Diagnosis Active and Suspected Problems Adrenal insufficiency due to acute steroid withdrawal (Acute) Hypokalemia (Acute) Hyponatremia (Acute) myalgias/arthralgias due to acute adrenal insufficiency Acute on chronic back pain - Secondary Discharge Diagnosis Chronic Problems Narcotic dependence (Chronic) Chronic back/neck pain (Chronic) - sees pain management in [place] HTN (hypertension) (Chronic) HLD (hyperlipidemia) (Chronic) GERD (gastroesophageal reflux disease) (Chronic) Tobacco dependence (Chronic) Allergic rhinitis (Chronic) Hospital Course and Treatment Imaging Results: Clinical Impression(s) from Imaging Studies Chest X-Ray 01/28/19 11:20 IMPRESSION: No focal patchy airspace opacities or pleural effusions Suspected COPD/emphysema Bibasilar atelectasis/scarring Mild cardiomegaly Electronically Signed: Anton Huerta DO at 11:49 EDT Tel , Service support , Cervical Spine X-Ray 01/28/19 15:22 IMPRESSION: Multilevel spondylosis Left cervical soft tissue calcification which could represent calcified atherosclerotic plaque. This could be further evaluated with carotid ultrasound. Electronically Signed: Jerry Humphreys at 16:08 EDT Tel , Service support , Lumbar Spine X-Ray 01/28/19 15:22 IMPRESSION: Degenerative changes of the spine, as detailed above. Minimal depression along the superior endplate T12 and L1 which are sclerosed. Comparison with older examinations may be helpful for dating. This may be chronic in age. Electronically Signed: Hallie Sam MD at 3:51 EDT , Service support , Thoracic Spine X-Ray 01/28/19 15:22 IMPRESSION: Multilevel spondylosis, no acute fractures Fixation rods and interpedicular screws within the lower cervical spine Left lower lobe linear scarring Electronically Signed: Jerry Humphreys, at 16:43 EDT Tel , Service support , none Operations: None Procedures: None Summary of Care Provided: Mr. Jimenes is a 64-year-old male with a past medical history of chronic back pain, hypertension, hyperlipidemia, GERD, tobacco dependence, allergic rhinitis, BPH and chronic pain syndrome on methadone and oxycodone who follows with pain management in [place] who presented to the Ed at [facility] from [place] on 01/28/2019 complaining of increased back pain. He ran out of prednisone (takes 10 mg BID) for the past 10 years for allergies and did not get a refill. He has had decreased appetite and poor intake with generalized weakness in increased pain. Vital signs in the emergency department were temp 98.2, heart rate 91, blood pressure 131/83, respiratory rate 16 and he was 95% saturated on room air. White blood cell count was 8.4 with an unremarkable differential. Sodium was low at 133 and the potassium was 2.7. BUN was 14 and creatinine was 1.02. UA had 0-5 WBCs per high-power field. He was admitted to the hospital with a diagnosis of acute on chronic intractable back pain and acute adrenal insufficiency. He had been taking more Prednisone than the prescribed 10 mg Q AM and 5 mg in the afternoon and that is why he ran out. He also said he only had a few pain meds left but, he had prescriptions form his pain management doctor in [place] on 01/13 and should not be out until his next appt on 02/12 or . He was kept on the same pain regimen that he said he was taking at home. He was hydrated and started on steroids again. He walked 160 ft with a wheeled walker and SBA. He has been observed standing by the window and when someone comes in the room he hurries to the EOB and c/o severe pain. He was also observed sitting at the EOB and reaching behind himself to get something with no difficulty. He was discharged from the hospital on 01/30 with a Prescription for Prednisone 10 mg Q AM and 5 mg Q afternoon. He was given #45 prednisone 10 mg tabs. He was also given a RX for Zanaflex 2 mg, #30, and will take 1 tab TID PRN muscle spasm. He has an appt with his pain management doctor in [place] coming up and was told to schedule an appt with the CAUSTIC MIXER he sees for chronic medical care. In my opinion he should be weaned off steroids. Would obtain a BMD/DEXA to evaluate bone density since he smoke and has been on prolonged steroids at 20 mg a day.....I suspect he will have significant bone loss. - Physical Exam General: Alert, Oriented x3, No apparent distress, Well developed, Well nourished, - - Smells strongly of cigarette smoke HEENT: Atraumatic, Normocephalic Oral: Moist Mucosa Neck: Trachea Midline, - - There is a cicatrix on the posterior neck on the left Lungs: Clear to auscultation, Diminished Cardiovascular: Regular rate, Regular Rhythm, Normal S1, Normal S2, No Gallop Abdomen: Bowel Sounds Present, Soft, Non Tender, Non-Distended Extremities: No clubbing, No cyanosis, No edema Skin: No rashes Neurological: Cranial nerves II-XII grossly intact, Neuro grossly intact, Motor Exam 5/5 strength throughout This note was generated with [employer] dictation software. It may contain incorrect words, spelling, and punctuation that were not noted in checking the note before signing. Patient Problems: Active and Suspected Problems Adrenal insufficiency due to steroid withdrawal (Acute) - Physical Exam Vital Signs Temp Pulse Resp BP Pulse Ox 98.5 F 87 16 153/75 H 98 01/30/19 13:25 01/30/19 13:25 01/30/19 13:25 01/30/19 13:25 01/30/19 13:25 Oxygen Delivery Method Room Air Weight: 175 lb 1.6 oz Body Mass Index (BMI) 26.6 Intake and Output for Last 24 Hours 01/28/19 01/29/19 01/30/19 23:59 23:59 23:59 Intake Total 3918 / 3918 826 / 826 Output Total 850 / 850 675 / 675 Balance 3068 / 3068 151 / 151 Return to work on:: 02/09/19 Call your doctor if you observe: Fever of 101 or Higher, Shortness of breath, Swelling in the ankles, Chest pain Home Medications: Medications to take at Discharge Amlodipine Besylate 10 mg PO DAILY 01/28/19 Atorvastatin Calcium [Lipitor] 20 mg PO DAILY 01/28/19 Hydrochlorothiazide [Hctz] 25 mg PO DAILY 01/28/19 Methadone HCl 5 mg PO BID 01/28/19 Oxycodone HCl 10 mg PO 4X/DAY 01/28/19 Tamsulosin HCl 0.4 mg PO DAILY 01/28/19 Prednisone 10 mg PO BID #45 tablet 01/30/19 Tizanidine HCl 2 mg PO TID PRN PRN #30 tablet 01/30/19 Following Prescrptions Were Given to Patient: Tizanidine HCl 2 mg PO TID PRN PRN #30 tablet PRN Reason: MUSCLE SPASMS Prednisone 10 mg PO BID #45 tablet Primary Care Physician: Chadd Castillo,Out of [Primary Care Provider] - Please follow up with your Primary Care Physician in: 1 week Please Follow Up With: pain management When: has an appt scheduled already Disposition: Home Minutes spent on discharge:: 30 Medical Necessity - Tobacco Use Smoking Status: Current every day smoker Tobacco Use: Cigarettes Meaningful Use Info Meaningful Use Diagnoses (Choose all that apply): None applicable Code Visit OBSV E&M: 49805 Observation care discharge
--- NOTE | 2019-01-30 13:49 | DS.PCM_ITS ---
Discharge Date and Diagnosis - Problem List Patient Problems: Active and Suspected Problems Adrenal insufficiency due to steroid withdrawal (Acute) Date of Admission: 01/28/19 Date of Discharge: 01/30/19 - Primary Discharge Diagnosis Active and Suspected Problems Adrenal insufficiency due to acute steroid withdrawal (Acute) Hypokalemia (Acute) Hyponatremia (Acute) myalgias/arthralgias due to acute adrenal insufficiency Acute on chronic back pain - Secondary Discharge Diagnosis Chronic Problems Narcotic dependence (Chronic) Chronic back/neck pain (Chronic) - sees pain management in [place] HTN (hypertension) (Chronic) HLD (hyperlipidemia) (Chronic) GERD (gastroesophageal reflux disease) (Chronic) Tobacco dependence (Chronic) Allergic rhinitis (Chronic) Hospital Course and Treatment Imaging Results: Clinical Impression(s) from Imaging Studies Chest X-Ray 01/28/19 11:20 IMPRESSION: No focal patchy airspace opacities or pleural effusions Suspected COPD/emphysema Bibasilar atelectasis/scarring Mild cardiomegaly Electronically Signed: Anton Huerta DO at 11:49 EDT Tel , Service support , Cervical Spine X-Ray 01/28/19 15:22 IMPRESSION: Multilevel spondylosis Left cervical soft tissue calcification which could represent calcified atherosclerotic plaque. This could be further evaluated with carotid ultrasound. Electronically Signed: Jerry Humphreys at 16:08 EDT Tel , Service support , Lumbar Spine X-Ray 01/28/19 15:22 IMPRESSION: Degenerative changes of the spine, as detailed above. Minimal depression along the superior endplate T12 and L1 which are sclerosed. Comparison with older examinations may be helpful for dating. This may be chronic in age. Electronically Signed: Hallie Sam MD at 3:51 EDT , Service support , Thoracic Spine X-Ray 01/28/19 15:22 IMPRESSION: Multilevel spondylosis, no acute fractures Fixation rods and interpedicular screws within the lower cervical spine Left lower lobe linear scarring Electronically Signed: Jerry Humphreys, at 16:43 EDT Tel , Service support , none Operations: None Procedures: None Summary of Care Provided: Mr. Jimenes is a 64-year-old male with a past medical history of chronic back pain, hypertension, hyperlipidemia, GERD, tobacco dependence, allergic rhinitis, BPH and chronic pain syndrome on methadone and oxycodone who follows with pain management in [place] who presented to the Ed at [facility] from [place] on 01/28/2019 complaining of increased back pain. He ran out of prednisone (takes 10 mg BID) for the past 10 years for allergies and did not get a refill. He has had decreased appetite and poor intake with generalized weakness in increased pain. Vital signs in the emergency department were temp 98.2, heart rate 91, blood pressure 131/83, respiratory rate 16 and he was 95% saturated on room air. White blood cell count was 8.4 with an unremarkable differential. Sodium was low at 133 and the potassium was 2.7. BUN was 14 and creatinine was 1.02. UA had 0-5 WBCs per high-power field. He was admitted to the hospital with a diagnosis of acute on chronic intractable back pain and acute adrenal insufficiency. He had been taking more Prednisone than the prescribed 10 mg Q AM and 5 mg in the afternoon and that is why he ran out. He also said he only had a few pain meds left but, he had prescriptions form his pain management doctor in [place] on 01/13 and should not be out until his next appt on 02/12 or . He was kept on the same pain regimen that he said he was taking at home. He was hydrated and started on steroids again. He walked 160 ft with a wheeled walker and SBA. He has been observed standing by the window and when someone comes in the room he hurries to the EOB and c/o severe pain. He was also observed sitting at the EOB and reaching behind himself to get something with no difficulty. He was discharged from the hospital on 01/30 with a Prescription for Prednisone 10 mg Q AM and 5 mg Q afternoon. He was given #45 prednisone 10 mg tabs. He was also given a RX for Zanaflex 2 mg, #30, and will take 1 tab TID PRN muscle spasm. He has an appt with his pain management doctor in [place] coming up and was told to schedule an appt with the DATA EXAMINATION CLERK he sees for chronic medical care. In my opinion he should be weaned off steroids. Would obtain a BMD/DEXA to evaluate bone density since he smoke and has been on prolonged steroids at 20 mg a day.....I suspect he will have significant bone loss. - Physical Exam General: Alert, Oriented x3, No apparent distress, Well developed, Well nourished, - - Smells strongly of cigarette smoke HEENT: Atraumatic, Normocephalic Oral: Moist Mucosa Neck: Trachea Midline, - - There is a cicatrix on the posterior neck on the left Lungs: Clear to auscultation, Diminished Cardiovascular: Regular rate, Regular Rhythm, Normal S1, Normal S2, No Gallop Abdomen: Bowel Sounds Present, Soft, Non Tender, Non-Distended Extremities: No clubbing, No cyanosis, No edema Skin: No rashes Neurological: Cranial nerves II-XII grossly intact, Neuro grossly intact, Motor Exam 5/5 strength throughout This note was generated with [employer] dictation software. It may contain incorrect words, spelling, and punctuation that were not noted in checking the note before signing. Patient Problems: Active and Suspected Problems Adrenal insufficiency due to steroid withdrawal (Acute) - Physical Exam Vital Signs Temp Pulse Resp BP Pulse Ox 98.5 F 87 16 153/75 H 98 01/30/19 13:25 01/30/19 13:25 01/30/19 13:25 01/30/19 13:25 01/30/19 13:25 Oxygen Delivery Method Room Air Weight: 175 lb 1.6 oz Body Mass Index (BMI) 26.6 Intake and Output for Last 24 Hours 01/28/19 01/29/19 01/30/19 23:59 23:59 23:59 Intake Total 3918 / 3918 826 / 826 Output Total 850 / 850 675 / 675 Balance 3068 / 3068 151 / 151 Return to work on:: 02/09/19 Call your doctor if you observe: Fever of 101 or Higher, Shortness of breath, Sw elling in the ankles, Chest pain Home Medications: Medications to take at Discharge Amlodipine Besylate 10 mg PO DAILY 01/28/19 Atorvastatin Calcium [Lipitor] 20 mg PO DAILY 01/28/19 Hydrochlorothiazide [Hctz] 25 mg PO DAILY 01/28/19 Methadone HCl 5 mg PO BID 01/28/19 Oxycodone HCl 10 mg PO 4X/DAY 01/28/19 Tamsulosin HCl 0.4 mg PO DAILY 01/28/19 Prednisone 10 mg PO BID #45 tablet 01/30/19 Tizanidine HCl 2 mg PO TID PRN PRN #30 tablet 01/30/19 Following Prescrptions Were Given to Patient: Tizanidine HCl 2 mg PO TID PRN PRN #30 tablet PRN Reason: MUSCLE SPASMS Prednisone 10 mg PO BID #45 tablet Primary Care Physician: Chadd Castillo,Out of [Primary Care Provider] - Please follow up with your Primary Care Physician in: 1 week Please Follow Up With: pain management When: has an appt scheduled already Disposition: Home Minutes spent on discharge:: 30 Medical Necessity - Tobacco Use Smoking Status: Current every day smoker Tobacco Use: Cigarettes Meaningful Use Info Meaningful Use Diagnoses (Choose all that apply): None applicable Code Visit OBSV E&M: 91482 Observation care discharge
== END 2019-01-30 16:42 | disposition home or self-care (01) ==
LOC: ED 13:15 → MS3 14:50
PROVIDERS: Admitting Provider Family Medicine; Emergency Provider Emergency Medicine; Visit Provider Family Medicine
DX: E27.3 Drug-induced adrenocortical insufficiency (principal); T38.0X5A Adverse effect of glucocorticoids and synthetic analogues, initial encounter; E87.6 Hypokalemia; E78.5 Hyperlipidemia, unspecified; K21.9 Gastro-esophageal reflux disease without esophagitis; E87.1 Hypo-osmolality and hyponatremia; G89.4 Chronic pain syndrome; I12.9 Hypertensive chronic kidney disease with stage 1 through stage 4 chronic kidney disease, or unspecified chronic kidney disease; N18.9 Chronic kidney disease, unspecified; N40.0 Benign prostatic hyperplasia without lower urinary tract symptoms; I45.2 Bifascicular block; F17.210 Nicotine dependence, cigarettes, uncomplicated; Z79.899 Other long term (current) drug therapy; Z79.52 Long term (current) use of systemic steroids; Z79.891 Long term (current) use of opiate analgesic
CPT/HCPCS: 36415; 71045; 72040; 72072; 72100; 80048; 81001; 83735; 84484; 85025; 93005; 96361; 96372; 96374; 96375; 96376; 97161; 97165; 97530; 99218; 99284; 99406; J7030; A4216; G0378

== ENCOUNTER 2019-03-21 14:48 | Emergency (ER) | payer BC, SELFPAY ==
[2019-01-28 15:17] VITALS: BMI 26.6
[2019-03-21 14:49] VITALS: BP 152/86; PULSE 100; RESP 18; TEMP 37; O2SAT 94; BMI 26.5
--- NOTE | 2019-03-21 16:12 | ED.VIS.GEN ---
History of Present Illness Chief Complaint: Back Informant: Patient Onset: Month(s) - 3 months ago Context: Gradual Onset Timing: Continuous Quality: sharp Location: neck and back Current Severity: Severe Maximum Severity: Severe Worsened by: movement Relieved by: nothing Associated Symptoms: none Narrative: 64-year-old male with a history of chronic neck and back pain currently in pain management presents to the emergency department with worsening chronic neck and back pain. Patient recently moved here from out of the area and is seeing a new pain management physician here Dr. Dee. His pain medication regimen was disrupted and he is having increasing pain which prompted his visit here to the emergency department today. He is not having any different pain than what is consistent with his chronic pain. He has no acute injury. He has no constitutional symptoms. No trauma or injury. No fevers. No numbness tingling or weakness. Is not been lightheaded or dizzy. Prior similar symptoms: Yes Recent Illness/Hospitalization: No Past Medical History - Allergies and Home Meds Allergies/Adverse Reactions: Allergies aspirin Allergy (Verified 03/21/19 14:51) Unknown Penicillins Allergy (Verified 03/21/19 14:51) Unknown Primary Care Physician: Chadd Castillo,Out of [Primary Care Provider] - Prior records reviewed: Yes Surgical History: - - Laminectomy decompression of the cervical spine with fusion, umbilical hernia repair, pyloromyotomy, turbinoplasty x 2. Smoking Status: Current every day smoker - Family History Maternal Family History: Reports: - - Patient notes a maternal family history of heart disease and hypertension. Paternal Family History: Reports: - - Patient notes a paternal family history of heart disease as well as prostate cancer. Review of Systems All systems negative except as indicated Musculoskeletal: Reports: Neck pain, Back pain Physical Exam Vital Signs/Narrative: Vital Signs Temp Pulse Resp BP Pulse Ox 03/21/19 14:49 98.6 F 100 18 152/86 H 94 Inital Vital Signs reviewed: Yes General: Well nourished, Well developed, No Acute Distress Head: Normocephalic, Atraumatic Eyes: Perrl, EOMI ENT: Moist mucous membranes Neck: Supple, Nontender - Surgical incision cervical spine clean dry and intact. Patient has no midline cervical spinal tenderness. He has normal range of motion of his neck. He has normal strength and sensation of both upper extremities. Cardiovascular: Regular rate, Regular rhythm Respiratory: No distress, CTA bilaterally, Chest nontender Abdomen: Soft, Nontender, Nondistended, Normal bowel sounds, No masses Back: - - Patient has bilateral lumbar paraspinal tenderness on palpation but there is no midline tenderness of the lumbar spine. His lower extremity pulses and sensation are normal bilaterally. 2+ patellar and Achilles reflexes bilaterally. His strength testing is 5 out of 5 of both lower extremities. Extremities: Nontender, No edema Skin: Normal color, No rash Neurological: Alert, Oriented x3, Normal Strength, Normal Sensation Diagnostic/Tx/Re-eval - Medical Decision Making Patient currently is in pain management through Dr. Dee. He is upset with his current regimen which is 5 mg of oxycodone and 15 mg of extended release morphine twice a day. He was seeing a different pain management physician in [place] and he states before he came back here is regimen was disrupted as well. He would like to be placed back on his original regimen which was 30 mg of morphine twice a day and 10 mg of oxycodone. The patient does not have any acute findings that would be concerning for disc herniation or an infection that would require admission or imaging or any work-up in the emergency department. Discussed with him that we would be unable to adjust his pain medication regimen that he gets through pain management and that that would have to be done by his pain management physician. He will have to call and get an appointment. He was given 1 dose of intramuscular Dilaudid in the emergency department. Patient will call on Saturday to be seen by his pain management physician. He will continue his medication regimen as prescribed. He was discharged ED Disposition - Plan for ED Patient: Disposition: Home or Assisted Living Diagnosis: Chronic back pain, Chronic neck pain Instructions: ED Neck Pain No Trauma Referrals: [facility] Doctor,Out of [Primary Care Provider] - Danielle Dee MD [STAFF PHYSICIAN] -
[2019-03-21] MEDS: HYDROmorphone 1 MG/ML Syringe IM (16:22)
== END 2019-03-21 16:44 | disposition home or self-care (01) ==
PROVIDERS: Emergency Provider Physician Assistant Medical
DX: G89.29 Other chronic pain (principal); M54.9 Dorsalgia, unspecified; M54.2 Cervicalgia; F17.200 Nicotine dependence, unspecified, uncomplicated; Z88.0 Allergy status to penicillin
CPT/HCPCS: 96372

== ENCOUNTER → 2019-04-01 16:38 | Outpatient (CLI) | payer BC, SELFPAY ==
[2019-03-21 14:49] VITALS: BMI 26.5
[2019-04-01 18:09] LABS: Amphetamine Urine VISTA NEGATIVE (<1000 ng/mL); Barbiturate Urine VISTA NEGATIVE (< 200 ng/mL); Benzodiazepine Urine VISTA NEGATIVE (< 200 ng/mL); Cocaine Urine VISTA NEGATIVE (< 300 ng/mL); Ecstacy Urine VISTA NEGATIVE (< 500 ng/mL); Methadone Urine VISTA NEGATIVE (< 300 ng/mL); PCP Urine VISTA NEGATIVE (< 25 ng/mL); THC Urine VISTA NEGATIVE (< 50 ng/mL); Vista UDS pH Range 5
== END ==
PROVIDERS: Referring Provider Anesthesiology Pain Medicine; Visit Provider Anesthesiology Pain Medicine
DX: F11.20 Opioid dependence, uncomplicated (principal)
CPT/HCPCS: 80307

== ENCOUNTER 2019-09-13 16:57 | Emergency (ER) | payer BC, SELFPAY ==
[2019-09-13 16:58] VITALS: BP 131/93; PULSE 96; RESP 18; TEMP 36.8; O2SAT 98; BMI 27.3
--- NOTE | 2019-09-13 17:22 | ED.DCSUM_ITS ---
- ER Visit Summary Date of Service: 09/13/19 Chief Complaint: Acute on chronic neck and back pain History of Present Illness: The patient is a 64 M history of chronic degenerative disc disease of his neck and back with prior neck surgery done in [place]. He also has renal insufficiency and sees chronic pain management. Basically his exacerbation of his pain since Saturday. No falls or trauma. No fever. No bowel or bladder incontinence. No weakness. Physical Examination: Older male no acute distress vital signs stable afebrile. H EENT exam unremarkable. Neck well-healed surgical scar posterior neck. Trachea midline. Lungs clear to auscultation. Heart regular rhythm no murmur. Abdomen soft nontender. Patient moving all 4 extremities. Neurovascular intact. Is 5-5 circle saw operator strength bilaterally. Dorsi plantarflexion intact. Normal medial thigh sensation. No cauda equina. He is able to walk. Neurologically is awake and alert with no focal motor deficits. Test Results: None. Patient had imaging in the past. Emergency Department Course and Treatment: This is a pain control issue and he needs to follow-up with pain management. He will be given IM injection of morphine and p.o. Zofran. He also needs a follow-up with a review specialist or get a second opinion. Treatment Plan: Continue on his chronic pain meds at home which include Percocet. He is also chronically on prednisone for inflammation. Disposition: Discharge Impression: Acute on chronic back pain History of degenerative disc disease of his lumbar and cervical spine with prior neck surgery. This note was generated with [employer] dictation software. It may contain incorrect words, spelling, and punctuation that were not noted in review of the chart prior to signing ED Disposition - Plan for ED Patient: Referrals: [facility] ,Out of [Primary Care Provider] -
--- NOTE | 2019-09-13 17:24 | DCINST.ED_ITS ---
ED Disposition - Plan for ED Patient: Disposition: Home or Assisted Living Instructions: BACK PAIN (Acute or Chronic), BACK AND NECK PAIN, General Referrals: [facility] Doctor,Out of [Primary Care Provider] - Damian Silver MD [NON-STAFF] - As soon as possible Additional Instructions: Follow-up with either your spine surgeon or get a second opinion with Dr. Yoseph Silver in [place] at the [facility]. Follow-up with your pain management doctor.
[2019-09-13] MEDS: morphine 10 MG/ML Syringe IM (17:34)
[2019-09-13] MEDS: Ondansetron ODT 4 MG Tablet PO (17:34)
[2019-09-13 18:11] VITALS: BP 131/81; PULSE 82; RESP 16; O2SAT 98
== END 2019-09-13 18:12 | disposition home or self-care (01) ==
PROVIDERS: Emergency Provider Emergency Medicine
DX: G89.29 Other chronic pain (principal); M54.9 Dorsalgia, unspecified; M51.36 Other intervertebral disc degeneration, lumbar region; M50.30 Other cervical disc degeneration, unspecified cervical region
CPT/HCPCS: 96372; 99283

== ENCOUNTER → 2020-07-28 15:59 | Outpatient (CLI) | payer BC, SELFPAY ==
--- NOTE | 2020-07-28 16:05 | RAD_ITS ---
ACR Level 3 findings have been noted. An addendum which confirms receipt of the report will follow. HISTORY: right hip pain, no injury ADDITIONAL HISTORY: None provided. EXAMINATION/TECHNIQUE: XR Hip Unilateral with Pelvis when performed; 2-3 Views Right Number of images including paperwork: 3 COMPARISON: None FINDINGS: BONES: No acute fracture. Curvilinear sclerosis noted in the right femoral head which could indicate the presence of avascular necrosis. JOINTS: No subluxation. Degenerative changes in the visible spine. SOFT TISSUES: No distinct foreign body. Prostate calcifications. RAD/HIP, UNI W/ Pelvis 2-3 Views IMPRESSION: Curvilinear sclerosis in the right femoral head may indicate avascular necrosis. MRI could further evaluate. at 2323 Reported and signed by: Karlie Andino MD Electronically Signed: Karlie Andino MD at 23:23 EDT Tel , Service support ,
== END ==
PROVIDERS: Referring Provider Anesthesiology Pain Medicine; Visit Provider Anesthesiology Pain Medicine
DX: M25.551 Pain in right hip (principal)
CPT/HCPCS: 73502